=== PATIENT | female | born 1945 | race Caucasian/White ===

== ENCOUNTER → 2016-12-09 | Outpatient (CLI) | payer OTHER ==
--- NOTE | 2016-12-10 09:05 | DX ---
DEXA Bone Densitometry Technique: DEXA scan was performed on [employer] Discovery W Bone Densitometer Indication: Prior vertebral fracture Comparator Study: None Results: Lumbar Spine BMD: 0.839 T-score: -1.9 Total Hip (Right) BMD: 0.829 T-score: 0.9 Femoral Neck (Right) BMD: 0.716 T-score: -1.2 Total Hip (Left) BMD: 0.781 T-score: -1.3 Femoral Neck (Left) BMD: 0.687 T-score: -1.5 CONCLUSION: Osteopenia If there was exclusion of L1 and L2 because of prior vertebral compression fractures, the remaining T score in the lumbar spine is diagnostic of osteoporosis. Recommend x-ray for further evaluation of v ertebral compression fractures ADDITIONAL COMMENTS: By FRA X calculation, the estimated 10 year probability of any major osteoporotic fracture is 19%. Th e estimated 10 year probability of hip fracture is 3.5%. This patient meets the National Osteoporosis Foundation guidelines for pharmacologic treatment based on T score less than -2.5 in the lumbar spine with exclusion of L1 and L2. In addition she meets bravo delines for pharmacologic treatment based on 10 year hip fracture risk greater than 3% Recommend further treatment to prevent fractures and increased bone mineral density. Consider repeating the study in 2 years NOTE: The risk of osteoporotic fractures increases approximately twofold for each 1.0 SD decrease in T-score. The T-score represents the standard deviations from a young normal, same sex, reference po pulation. Low bone density is not the only risk factor for fracture. Clinical factors to consider include fall risk, previous osteoporotic fractures, family history of fractures, smoking, and low body weight. Patients who have an unexpectedly low BMD may need to be evaluated for secondary causes of low bone m ineral density. In comparing the present study to a prior study, lack of a significant increase or decrease in BMD ma y signify efficacy of the patient's present treatment. Bone mineral density measurements performed with densitometers produced by different manufacturers ar e not comparable. For the most reproducible BMD measurement, subsequent exams should be performed on the same densitometer.
== END ==
LOC: BMCIMAGING 14:29
PROVIDERS: ATTEND Internal Medicine Rheumatology
DX: Z13.820 Encounter for screening for osteoporosis (principal); M85.80 Other specified disorders of bone density and structure, unspecified site

== ENCOUNTER → 2016-12-22 | Outpatient (CLI) | payer OTHER | LOC: BMCIMAGING 09:05 | PROVIDERS: ATTEND Internal Medicine Endocrinology, Diabetes & Metabolism | DX: E04.2 Nontoxic multinodular goiter (principal); R22.1 Localized swelling, mass and lump, neck | CPT/HCPCS: 76536-PO ==

== ENCOUNTER → 2017-03-12 | Outpatient (CLI) | payer OTHER | LOC: BMCIMAGING 09:22 | PROVIDERS: ATTEND Internal Medicine Rheumatology | DX: M79.652 Pain in left thigh (principal) ==

== ENCOUNTER → 2017-04-27 | Outpatient (CLI) | payer OTHER | LOC: BMCIMAGING 07:54 | PROVIDERS: ATTEND Internal Medicine | DX: Z12.31 Encounter for screening mammogram for malignant neoplasm of breast (principal); Z80.3 Family history of malignant neoplasm of breast; Z85.72 Personal history of non-Hodgkin lymphomas | CPT/HCPCS: G0202 ==

== ENCOUNTER 2017-11-05 21:16 | Inpatient (IN) | payer OTHER ==
--- NOTE | 2017-11-05 21:40 | CPEKG ---
Heart Rate: 91 RR Interval: 659 P-R Interval: 144 QRSD Interval: 90 QT Interval: 372 QTC Interval: 458 P Moore: 68 QRS Moore: 73 T Wave Moore: 25 EKG Severity - BORDERLINE ECG - EKG Impression: SINUS RHYTHM EKG Impression: PROBABLE LEFT ATRIAL ABNORMALITY Electronically Signed By: J Luis Randle 07-Nov-2017 06:04:43
[2017-11-05 21:49] LABS: PLATELET COUNT 234 10^3/uL (150-400)
[2017-11-05] MEDS ORDERED: LIDOCAINE 2% VISCOUS 15 ML UDCUP PO ONE (22:14)
[2017-11-05] MEDS ORDERED: MAG HYDROX/AL HYDROX/SIMETH 30 ML UDCUP PO ONE (22:14)
[2017-11-05] MEDS ORDERED: ASPIRIN 81 MG CHEWABLE TAB PO ONE (22:15)
--- NOTE | 2017-11-05 22:18 | EDPHY ---
H & P Stated Complaint: c/o palpitations last week, today felt sob/dizzy/sub sternal cp Time Seen by Provider: 11/05/17 22:02 HPI/ROS: Chief Complaint: Chest pain, lightheaded, nausea HPI: A 72-year-old type 2 diabetic who is been having some substernal chest discomfort on off for the last 2 days. She has had some associated nausea and lightheadedness. Today she went for a 4 mi hiking had some increased shortness of breath while hiking and some increasing discomfort in her chest. At worst is a 3/4 out of 10. Is described as a tightness. Two weeks ago she had. Has some irregular heartbeat which has since resolved. Patient also having some pain which is radiating down her left scapula which went away after she took 2 Advil. No leg pain or swelling. No pleuritic chest pain. No cough. No fevers or chills. No vomiting diarrhea or constipation. She did have a stress test 1 year ago was told by her physician she had "age-related vessel changes ". ROS: 10 point Review of Systems is negative except as noted in the HPI. PMH: Type 2 diabetes, osteoporosis, hypertension, rheumatoid arthritis, lymphoma Social History: No smoking, occasional alcohol, no recreational drug use Family History: Father of complications from prostate cancer, mother at 99 years old Physical Exam: Gen: Awake, Alert, No Distress HEENT: Nose: no rhinorrhea Eyes: PERRLA, EOMI Mouth: Moist mucosa Neck: Supple, no JVD Chest: nontender, lungs clear to auscultation Heart: S1, S2 normal, no murmur Abd: Soft, moderate epigastric tenderness reproducing presenting complaint, no guarding, no right upper quadrant tenderness, no lower abdominal tenderness Back: no CVA tenderness, no midline tenderness Ext: no edema, non-tender Skin: no rash Neuro: CN II-XII intact, Sensation grossly intact, Strength 5/5 in bilateral upper and lower extremities - Medical/Surgical History Hx Asthma: No Hx Chronic Respiratory Disease: No Hx Diabetes: Yes Hx Cardiac Disease: Yes Hx Renal Disease: No Hx Cirrhosis: No Hx Alcoholism: No Hx HIV/AIDS: No Hx Splenectomy or Spleen Trauma: No Other PMH: dm 2, osteoporosis, hyperlipidemia, RA, L3- L5 laminectomy, appendectomy, lymphoma - Social History Smoking Status: Never smoked Constitutional: Initial Vital Signs Temperature (C) 36.9 C 11/05/17 21:21 Heart Rate 102 H 11/05/17 21:21 Respiratory Rate 16 11/05/17 21:21 Blood Pressure 116/76 11/05/17 21:21 O2 Sat (%) 98 11/05/17 21:21 O2 Delivery Mode Nasal Cannula O2 (L/minute) 2 Allergies/Adverse Reactions: meperidine HCl [From Demerol] Allergy (Mild, Verified 11/05/17 21:28) Home Medications: Medication Instructions Recorded ESCITALOPRAM OXALATE [Lexapro] 20 mg PO 05/11/11 Hydroxychloroquine Sulfate 400 mg PO 05/11/11 [Plaquenil] Triamterene/Hctz 37.5/25 [Dyazide] 1 each PO DAILY 05/11/11 Aspirin 81mg (*) 11/05/17 Atorvastatin Calcium 11/05/17 Lantus 100 UNITS/ML (*) 11/05/17 Prolia 11/05/17 Medical Decision Making - Diagnostics EKG Interpretation: ECG time 9:39 p.m., sinus rhythm with a rate of 91, normal axis, normal intervals, there is greater than [address] depression in V5 and V6 with very minimal depression in V4. Imaging Results: Imaging Impressions Chest X-Ray 11/05/17 22:13 Impression: No evidence for acute cardiopulmonary abnormality. Imaging: I viewed and interpreted images myself ED Course/Re-evaluation: A 72-year-old with epigastric pain. She is concerning changes in the lateral leads in her ECG. Pain is actually relieved with a GI cocktail. Troponin is negative. Given her diabetes an ECG changes she will need to be admitted for further cardiac evaluation. I have discussed case with Dr. Adkins, hospitalist. She will admit to her service for further evaluation and care. - Data Points Laboratory Results: Laboratory Results 11/05/17 21:40 11/05/17 21:40 11/05/17 11/05/17 11/05/17 21:40 21:40 21:40 WBC 5.95 10^3/uL 10^3/uL (3.80-9.50) RBC 4.32 10^6/uL 10^6/uL (4.18-5.33) Hgb 13.7 g/dL g/dL (12.6-16.3) Hct 39.3 % % (38.0-47.0) MCV 91.0 fL fL (81.5-99.8) MCH 31.7 pg pg (27.9-34.1) MCHC 34.9 g/dL g/dL (32.4-36.7) RDW 13.2 % % (11.5-15.2) Plt Count 234 10^3/uL 10^3/uL (150-400) MPV 8.9 fL fL (8.7-11.7) Neut % (Auto) 91.5 % H % (39.3-74.2) Lymph % (Auto) 3.5 % L % (15.0-45.0) Yates % (Auto) 3.2 % L % (4.5-13.0) Eos % (Auto) 0.8 % % (0.6-7.6) Baso % (Auto) 0.5 % % (0.3-1.7) Nucleat RBC Rel Count 0.0 % % (0.0-0.2) Absolute Neuts (auto) 5.44 10^3/uL 10^3/uL (1.70-6.50) Absolute Lymphs (auto) 0.21 10^3/uL L 10^3/uL (1.00-3.00) Absolute Monos (auto) 0.19 10^3/uL L 10^3/uL (0.30-0.80) Absolute Eos (auto) 0.05 10^3/uL 10^3/uL (0.03-0.40) Absolute Basos (auto) 0.03 10^3/uL 10^3/uL (0.02-0.10) Absolute Nucleated RBC 0.00 10^3/uL 10^3/uL (0-0.01) Immature Gran % 0.5 % % (0.0-1.1) Immature Gran # 0.03 10^3/uL 10^3/uL (0.00-0.10) Turbidity Cancelled Sodium Cancelled 134 mEq/L mEq/L (134-144) Potassium Cancelled 3.5 mEq/L mEq/L (3.5-5.2) Chloride Cancelled 99 mEq/L mEq/L (97-110) Carbon Dioxide Cancelled 21 mEq/l L mEq/l (22-31) Anion Gap Cancelled 14 mEq/L mEq/L (8-16) BUN Cancelled 36 mg/dL H mg/dL (7-23) Creatinine Cancelled 0.8 mg/dL mg/dL (0.6-1.0) Estimated GFR Cancelled > 60 Glucose Cancelled 215 mg/dL H mg/dL (70-100) Calcium Cancelled 9.5 mg/dL mg/dL (8.5-10.4) Total Bilirubin Cancelled Icterus Index Cancelled AST Cancelled ALT Cancelled Alkaline Phosphatase Cancelled Troponin I Cancelled < 0.012 ng/mL ng/mL (0.000-0.034) Total Protein Cancelled Albumin Cancelled Lipase 152 IU/L IU/L (23-300) Specimen Hemolysis Cancelled Medications Given: Discontinued Medications Al Hydroxide/Mg Hydroxide (Maalox Susp) 30 ml PO ONCE ONE Stop: 11/05/17 22:15 Last Admin: 11/05/17 22:37 Dose: 30 ml Aspirin (Aspirin) 324 mg PO EDNOW ONE Stop: 11/05/17 22:16 Last Admin: 11/05/17 22:37 Dose: 324 mg Lidocaine (Lidocaine 2% Viscous) 15 ml PO ONCE ONE Stop: 11/05/17 22:15 Last Admin: 11/05/17 22:37 Dose: 15 ml Departure - Departure Disposition: [facility] Inpatient Acute Clinical Impression: Chest pain Condition: Fair Referrals: Mikey Sena MD [Primary Care Provider] - As per Instructions
[2017-11-06] MEDS ORDERED: HYDROCODONE/APAP 5/325 TAB PO PRN (00:52)
[2017-11-06] MEDS ORDERED: ONDANSETRON 4 MG/2 ML VIAL IVP PRN (00:52)
[2017-11-06] MEDS ORDERED: LORazepam 2 MG/ML INJ IVP PRN (00:52)
[2017-11-06] MEDS ORDERED: D50W 25 GM/50 ML VIAL IVP PRN (00:56)
[2017-11-06] MEDS ORDERED: MBX SOLN 30 ML BOTTLE PO PRN (00:58)
[2017-11-06] MEDS ORDERED: NITROGLYCERIN 0.4 MG BTL SL PRN (00:59)
[2017-11-06] MEDS ORDERED: INSULIN GLARGINE 100 UNITS/ML SYRINGE SC SCH (01:15)
[2017-11-06] MEDS: NS 1,000 ML IV SCH ×4 (02:13→17:20)
[2017-11-06] MEDS: PANTOPRAZOLE SODIUM 40 MG VIAL IVP SCH ×2 (02:23→11:34)
--- NOTE | 2017-11-06 03:25 | GHP ---
[f rep st] HISTORY AND PHYSICAL DATE OF ADMISSION: 11/05/2017 SOURCE: Patient provides history, appears quite reliable. EMR reviewed. Case discussed with ED provider. CHIEF COMPLAINT: Chest tightness and epigastric pain. HISTORY OF PRESENT ILLNESS: This is a very pleasant 72-year-old female with past medical history significant for diabetes type 2, benign essential hypertension, hyperlipidemia, depression, rheumatoid arthritis, and history of MALT lymphoma in remission, who presents to the emergency department today with complaints of epigastric abdominal pain and chest tightness. Patient reports that she has been feeling increasingly fatigued over the past several months and more so today. She also noted some lightheadedness with nausea and chest tightness during a several hour hike locally. Patient reports that she felt like she could not get enough air. She developed some diaphoresis with her lightheadedness, which she attributes to orthostatic changes. Patient did not have any nausea. No diarrhea. No melena or hematochezia. Patient describes her chest pain as a tightness and aching. She also developed some left subclavicular, subscapular pain which resolved after taking several Advil. Given her multiple symptoms, patient presented to the emergency department for further evaluation. Patient reports that she had a stress test within the last year. Dobutamine with echo and a treadmill. I do not have access to these records. Patient reports that it was completed at [facility]. She was advised that she had some "age-related vessel changes". Patient also reports that she has a history of a murmur. She believes it could be due to mitral regurgitation, but she is not 100% clear. She denies any orthopnea, no PND and no lower extremity edema. In the emergency department, patient underwent cardiac evaluation with EKG showing some ST depressions in the lateral leads without any available EKGs for comparison. Additionally, troponin was negative. Patient was given a GI cocktail which she reports helped with her epigastric pain, but she continues to complain of some substernal tightness. She denies any reflux type symptoms. She also notes that she had an EGD for followup of her MALT lymphoma as well as H pylori testing in April of this year, which were all negative. Patient did note that she was drinking coffee and her some of her symptoms appeared to worsen, so she stopped drinking that. She did not take any ooqo-xrw-vritabz medications to see if this would help with her symptoms. REVIEW OF SYSTEMS: Negative for fevers and sweats. Patient did report some chills earlier all day today, which have resolved since arrival to the emergency department. She has noted progressive fatigue. SKIN: The patient denies any rash or sores. EYES: does wear readers. No acute changes in vision. ENT: No rhinorrhea or sore throat. CV: See HPI. RESPIRATORY: Patient with some shortness of air. No cough. GI: With nausea and epigastric pain as per HPI. No melena or hematochezia. : No dysuria or hematuria. MUSCULOSKELETAL: Patient denies. The reported left subclavicular, subscapular pain, now resolved. NEURO: Patient reports some mild headache. No numbness or tingling. No focal weakness. PSYCHIATRIC: Patient reports history of remote situational related mood disturbance but no chronic depression, and currently having some increased anxiety with her current symptoms. Remainder ROS negative except as noted above. ALLERGIES: To Demerol. HOME MEDICATIONS: Janumet, triamterene/HCTZ 37.5/25, Prolia, Lantus 10 units at h.s., Plaquenil 400 mg, Lexapro 20 mg, atorvastatin, and aspirin 81 mg p.o. daily. PAST MEDICAL HISTORY: Significant for diabetes type 2, hypertension, hyperlipidemia, depression, osteoporosis with history of several vertebral fractures that required 9 months of brace support, rheumatoid arthritis, MALT lymphoma status post radiation therapy in 2010, and a murmur. PAST SURGICAL HISTORY: Significant for diskectomy, laminectomy, and lumbar spine. EGD in April of 2017 with H pylori testing that was negative. Bilateral cataract surgery. FAMILY HISTORY: Father with history of prostate cancer, age 95. Mother age 99 of old age. Three adult sons who are all healthy. 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 She does not smoke or utilize any illicit drug use or marijuana. She did previously drink 1-2 glasses of wine nightly, which she has cut back. CODE STATUS: Full. Patient desires her to act as proxy if needed. PHYSICAL EXAM: VITAL SIGNS: Blood pressure upon arrival to the emergency department 116/76, heart rate 102, respiratory rate 16, O2 sat 98% on room air with a temperature 36.9. Patient did have a decline in blood pressures low as 96/75 with a normalized heart rate in the 80s. Current vitals available blood pressure 111/70, heart rate is 83, respiratory rate 16, O2 saturation 97% on room air. Afebrile. GENERAL: No acute distress. Very pleasant adult female who appears slightly older than stated age. Pleasant and cooperative. HEAD: Normocephalic, atraumatic. EYES: Extraocular muscles are intact. Pupils equal , round, and reactive to light bilaterally and symmetric. Lens reflex appreciated bilaterally. ENT: Mucous membranes appear dry. Lips are dry and cracked slightly. No nasal discharge. NECK: Supple. Trachea midline. CV: Regular rate and rhythm with a 2/6 systolic murmur in the left sternal border. No chest wall tenderness to palpation. RESPIRATORY: Unlabored breathing. LUNGS: Clear to auscultation bilaterally. No wheezes, rales, or rhonchi appreciated. ABDOMEN: Positive bowel sounds. Soft. Minimal tenderness to palpation in the epigastric region. No rebound or guarding appreciated. : No Pritchett catheter in place. No suprapubic tenderness to palpation. EXTREMITIES : No cyanosis, clubbing, or edema appreciated. MUSCULOSKELETAL: Strength is 5 /5 in upper and lower extremities. Patient is able to sit up independently. NEURO: Grossly nonfocal. No facial drooping. Patient moves all extremities as above. PSYCH: Patient is slightly anxious, but pleasant, cooperative and thought process, content and questions are all appropriate. Patient is oriented x4. LABORATORY STUDIES: WBC is 5.95, H and H 13.7, 39.3, MCV of 91.0, platelet count 234, neutrophil percent 91.5. No bands. Sodium is 134, potassium 3.5, chloride 99, CO2 21, BUN is 36, creatinine 0.8, GFR of greater than 60, glucose is 215, calcium 9.5. Troponin is negative. Lipase 152. Chest x-ray image report reviewed myself is negative for any acute findings. Patient does have noted multilevel vertebral deformities. These are noted at level of T11, L1 and L2. EKG reviewed myself shows normal sinus rhythm in the 90s, ST depressions in the lateral leads with less than 1 mm depression in lead III. No acute ST elevations. No comparison EKGs. QTc is 458. ASSESSMENT AND PLAN: Pleasant 72-year-old female who presents with complaints of substernal epigastric pain. 1. Chest pain. Differential diagnosis including likely a GI etiology of esophagitis or gastritis. Patient's symptoms did appear to improve after GI cocktail. Will plan to continue this p.r.n. Also add on a PPI for further symptom control. Patient does plan to avoid her triggers including caffeine and possibly wine at h.s. The patient's EKG, however, does have some noted ST depressions in the lateral leads. There are no comparison EKGs available for review that I can access at this time. Patient did report a stress test that was completed approximately a year ago, treadmill and dobutamine echo that were reported to be nonischemic per the patient. Will try to see if we can access these records in the morning. Plan to trend cardiac enzymes and consider further cardiac testing given patient's increased risk factors with a heart score of 4. Patient will also have nitroglycerin available. She has received full dose aspirin in the emergency department. Additionally, chest pain could be related to some hypotension. Will hold patient's diuretic therapy. Continue with IV fluids. Repeat EKG later this morning and consider stress testing in the morning after rule out with cardiac enzymes as above. 2. Epigastric pain. Lipase is negative. Patient does have history of MALT tumor, which was evaluated and noted to be in remission with recent EGD in April. Possibly gastritis or esophagitis. Patient did improve with a GI cocktail. Will add on a PPI as above. 3. Hypotension, likely dehydration. Patient clinically does appear dry and she is on a diuretic. Will proceed with IV fluid hydration overnight and obtain some orthostatic blood pressures. 4. Murmur with history of reported mitral regurg. Again will try to obtain records. If not, consider further evaluation at this time. Patient without any clinical history of congestive heart failure decompensation. 5. Chronic medical problems: Diabetes type 2, reported controlled with Lantus and Janumet. Will place patient on insulin sliding scale and she will be given her 10 units of h.s. Lantus this evening. Resume Janumet after discharge. 6. Benign essential hypertension, holding diuretic at this time. Blood pressures are low-normal. IV fluid hydration as per above. 7. History of rheumatoid arthritis. Resume patient's Plaquenil. 8. Depression. Continue patient's Lexapro once med reconciliation can be completed by pharmacy as there are some missing medications. 9. Hyperlipidemia. Check a lipid panel in the morning and an A1c. Continue statin here if patient should stay an additional day. 10. History of MALT lymphoma, in remission. 11. History of vertebral fracture. Patient without complaints of acute pain. Noted history of vertebral fractures. Supportive care. 12. Fluid, electrolyte, nutrition: Normal saline IV fluid as above while patient is n.p.o. for possible procedure with stress testing. Electrolytes will be monitored and replaced if needed. 13. Prophylaxis: SCDs. Holding anticoagulation pending rule out. 14. Consider Lovenox if patient should need to stay an additional day. 15. Code status is full. to act as proxy if needed. DISPOSITION: Patient has been admitted to observation on PCU floor for close cardiac monitoring while awaiting further evaluation of complaints of chest pain. /[id number]/MODL MTDD
[2017-11-06] MEDS ORDERED: NS 1,000 ML IV ONE (03:38)
[2017-11-06 08:01] LABS: PLATELET COUNT 209 10^3/uL (150-400)
[2017-11-06] MEDS: ACETAMINOPHEN 325 MG TAB PO PRN (08:08)
--- NOTE | 2017-11-06 09:12 | CPEKG ---
Heart Rate: 77 RR Interval: 779 P-R Interval: 164 QRSD Interval: 96 QT Interval: 416 QTC Interval: 471 P Gueydan: 66 QRS Gueydan: 58 T Wave Gueydan: 35 EKG Severity - BORDERLINE ECG - EKG Impression: SINUS RHYTHM EKG Impression: PROBABLE LEFT ATRIAL ABNORMALITY EKG Impression: CONSIDER ANTERIOR INFARCT Electronically Signed By: Chuck Montes 07-Nov-2017 07:38:37
--- NOTE | 2017-11-06 09:29 | ASMTCMCOM ---
CM Note CM Note Notes: 11/06/2017 Case Management Note Met w/pt. NESBITT signed. There are not case management d/c needs identified d/t pt age, marital status and employment status. 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 Norman can be reached at [phone]. There are no PT or OT evals ordered at this time. Case Management d/c poc: Home independent with follow up as directed. Case Mangement available if needs change. Date Signed: 11/06/2017 09:29 AM Electronically Signed By:Aspen Ma RN
[2017-11-06] MEDS: INSULIN LISPRO 100 UNIT/ML SC SCH ×4 (11:31→18:27)
--- NOTE | 2017-11-06 15:36 | HOSPPROG ---
Hospitalist Progress Note Assessment/Plan: 72 yo F w cp cp: w ekg changes c/f angina h/o abnl stress in past repeat ion AM hypotension: no ekg during repeat trop SUSPECT vv due to epigastric pain afebrile, not tachycardic and euvolemic dm: sugars in slightly high overnight a1c pending epigastric pain: responded to GI cocktail. this does not rule out anginal sx dispo: change to inpatienr Subjective: ekg w lateral ST depressions last inder; resolved this AM (interp by me). cxr w no infiltrtate (interp by me) Objective: Vital Signs Temp Pulse Resp BP Pulse Ox 36.8 C 73 16 100/62 98 11/06/17 11:15 11/06/17 11:15 11/06/17 11:15 11/06/17 15:00 11/06/17 11:15 Laboratory Results 11/06/17 07:47 11/06/17 07:47 11/05/17 11/06/17 11/07/17 05:59 05:59 05:59 Intake Total 1850 Balance 1850 - Physical Exam Constitutional: no apparent distress, appears nourished Eyes: PERRL, anicteric sclera Ears, Nose, Mouth, Throat: moist mucous membranes, hearing normal Cardiovascular: regular rate and rhythym, no murmur, rub, or gallop Respiratory: no respiratory distress, no rales or rhonchi Gastrointestinal: normoactive bowel sounds, soft, non-tender abdomen Genitourinary: no bladder fullness, No morrison in urethra Skin: warm, normal color Musculoskeletal: full muscle strength, no muscle tenderness Neurologic: AAOx3 Psychiatric: interacting appropriately ICD10 Worksheet Patient Problems: Problems Problem Status Onset Chest pain Acute
--- NOTE | 2017-11-06 16:10 | PDMN ---
Medical Necessity Medical necessity: C/M review: est. > 2 MN LOS for eval and TX of acute chest pain with EKG changes consistent with angina, hypotension. epigastric pain requiring planned stress treadmill and myocardial perfusion scan, ongoing cardiac monitoring, IV fluids, pulse oximetry, comorbid abnormal stress in the past, diabetes mellitus per 11/06/2017 Hospitalist progress note.
[2017-11-06] MEDS: metFORMIN HCL 500 MG TAB PO SCH (16:27)
[2017-11-06] MEDS: ESCITALOPRAM OXALATE 10 MG TAB PO SCH (20:52)
[2017-11-06] MEDS: CHOLECALCIFEROL VIT D3 2,000 UNITS TAB/CAP PO SCH (20:52)
[2017-11-06] MEDS: ATORVASTATIN CALCIUM 20 MG TAB PO SCH (20:52)
[2017-11-06] MEDS: ASPIRIN 81 MG CHEWABLE TAB PO SCH (20:52)
[2017-11-06] MEDS: INSULIN GLARGINE 100 UNITS/ML SYRINGE SC SCH (21:23)
[2017-11-06] MEDS: traZODone 50 MG TAB PO SCH (21:24)
[2017-11-06] MEDS ORDERED: PROTOCOL POTASSIUM 1 DOSE MISC PRN (22:53)
[2017-11-06] MEDS ORDERED: PROTOCOL MAGNESIUM 1 DOSE IV PRN (22:53)
[2017-11-06] MEDS ORDERED: PROTOCOL K PHOSPHATE 1 DOSE IV PRN (22:53)
[2017-11-07] MEDS ORDERED: POTASSIUM CL 10 MEQ TAB PO ONE ×2 (07:22→11:30)
--- NOTE | 2017-11-07 10:15 | CPR ---
[f rep st] NONINVASIVE CARDIAC PROCEDURE REPORT PROCEDURE: Nuclear stress test. After giving informed consent, we proceeded with a nuclear stress test. The patient performed for 6 minutes on a standard Kiko protocol and then went for another 10 seconds on stage III of the standar d Kiko protocol. She felt like that was too fast for her and so we stopped the test. She reached 9 5% of maximum predicted heart rate. She had no chest pain. She stopped for shortness of breath. Chaparro bang EKG did not change with exercise. CONCLUSIONS: 1. Moderate exercise tolerance. 2. No cardiovascular symptoms with exercise. 3. Nuclear images pending. 4. No EKG or clinical evidence of ischemia at maximum workload. /[id number]/MODL
[2017-11-07] MEDS: INSULIN LISPRO 100 UNIT/ML SC SCH ×4 (11:07→17:29)
[2017-11-07] MEDS: PANTOPRAZOLE SODIUM 40 MG VIAL IVP SCH (11:19)
[2017-11-07] MEDS: TRIAMTERENE/HCTZ 37.5/25 1 EACH CAP PO SCH (11:19)
[2017-11-07] MEDS: metFORMIN HCL 500 MG TAB PO SCH ×2 (11:19→17:37)
[2017-11-07] MEDS: HYDROXYCHLOROQUINE SULFATE 200 MG TAB PO SCH (11:24)
[2017-11-07] MEDS ORDERED: K PHOS 10 MMOL in D5W 250 ML IV ONE (12:00)
--- NOTE | 2017-11-07 14:42 | HOSPPROG ---
Hospitalist Progress Note Assessment/Plan: 72 yo F w cp cp: w ekg changes c/f angina h/o abnl stress in past ekg portion of stress unremarkable but stress images abnl rest images in AM hypotension: no ekg during repeat trop SUSPECT vv due to epigastric pain afebrile, not tachycardic and euvolemic resolved dm: sugars in slightly high overnight a1c pending epigastric pain: responded to GI cocktail. this does not rule out anginal sx dispo: change to inpatient Subjective: case d/w dr smith. tele: no events (interp by me) Objective: Vital Signs Temp Pulse Resp BP Pulse Ox 36.7 C 69 15 102/65 98 11/07/17 12:00 11/07/17 12:00 11/07/17 12:00 11/07/17 12:00 11/07/17 12:00 Laboratory Results 11/07/17 03:30 11/07/17 03:30 11/06/17 11/07/17 11/08/17 05:59 05:59 05:59 Intake Total 4042 Balance 4042 - Physical Exam Constitutional: no apparent distress, appears nourished Eyes: PERRL, anicteric sclera Ears, Nose, Mouth, Throat: moist mucous membranes, hearing normal Cardiovascular: regular rate and rhythym, no murmur, rub, or gallop, systolic murmur Respiratory: no respiratory distress, no rales or rhonchi Gastrointestinal: normoactive bowel sounds, soft, non-tender abdomen Genitourinary: no bladder fullness, No morrison in urethra Skin: warm, normal color Musculoskeletal: full muscle strength, no muscle tenderness Neurologic: AAOx3 Psychiatric: interacting appropriately ICD10 Worksheet Patient Problems: Problems Problem Status Onset Chest pain Acute
[2017-11-07] MEDS: ACETAMINOPHEN 325 MG TAB PO PRN (21:12)
[2017-11-07] MEDS: INSULIN GLARGINE 100 UNITS/ML SYRINGE SC SCH (22:54)
[2017-11-07] MEDS: traZODone 50 MG TAB PO SCH (22:55)
[2017-11-07] MEDS: ATORVASTATIN CALCIUM 20 MG TAB PO SCH (22:55)
[2017-11-07] MEDS: ESCITALOPRAM OXALATE 10 MG TAB PO SCH (22:55)
[2017-11-07] MEDS: ASPIRIN 81 MG CHEWABLE TAB PO SCH (22:55)
[2017-11-07] MEDS: CHOLECALCIFEROL VIT D3 2,000 UNITS TAB/CAP PO SCH (22:55)
[2017-11-08] MEDS ORDERED: POTASSIUM CL 10 MEQ TAB PO ONE (07:55)
[2017-11-08] MEDS: HYDROXYCHLOROQUINE SULFATE 200 MG TAB PO SCH (11:55)
[2017-11-08] MEDS: TRIAMTERENE/HCTZ 37.5/25 1 EACH CAP PO SCH (11:55)
[2017-11-08] MEDS: metFORMIN HCL 500 MG TAB PO SCH ×2 (11:55→17:03)
[2017-11-08] MEDS: INSULIN LISPRO 100 UNIT/ML SC SCH ×2 (12:02→16:51)
--- NOTE | 2017-11-08 13:18 | HOSPPROG ---
Hospitalist Progress Note Assessment/Plan: 72 yo F w cp cp: w ekg changes c/f angina stress w inferolateral infarct vs artifact CT coronary angiography now MR: may be responsible for MARES outpt echo hypotension: no ekg during repeat trop SUSPECT vv due to epigastric pain afebrile, not tachycardic and euvolemic resolved dm: sugars in slightly high overnight a1c pending epigastric pain: responded to GI cocktail. this does not rule out anginal sx dispo: change to inpatient Subjective: case discussed at length w Dr Velasco as well as Dr Medina. rest images demonstrate inferolateral infarct vs artifact Objective: Vital Signs Temp Pulse Resp BP Pulse Ox 36.9 C 72 18 114/72 94 11/08/17 11:14 11/08/17 11:14 11/08/17 11:14 11/08/17 11:14 11/08/17 11:14 Laboratory Results 11/07/17 03:30 11/08/17 03:27 11/07/17 11/08/17 11/09/17 05:59 05:59 05:59 Intake Total 4042 200 Balance 4042 200 - Physical Exam Constitutional: no apparent distress, appears nourished Eyes: PERRL, anicteric sclera Ears, Nose, Mouth, Throat: moist mucous membranes, hearing normal Cardiovascular: regular rate and rhythym, systolic murmur Respiratory: no respiratory distress, no rales or rhonchi Gastrointestinal: normoactive bowel sounds, soft, non-tender abdomen Genitourinary: no bladder fullness, No morrison in urethra Skin: warm, normal color Musculoskeletal: full muscle strength, no muscle tenderness Neurologic: AAOx3 Psychiatric: interacting appropriately ICD10 Worksheet Patient Problems: Problems Problem Status Onset Chest pain Acute
[2017-11-08] MEDS ORDERED: METOPROLOL TARTRATE 25 MG TAB PO ONE (13:27)
[2017-11-08] MEDS ORDERED: IOPAMIDOL (ISOVUE 370) 100 ML BTL IV ONE (15:09)
[2017-11-08] MEDS ORDERED: NITROGLYCERIN 0.4 MG BTL SL ONE (15:24)
--- NOTE | 2017-11-08 15:24 | GCON ---
[f rep st] CONSULTATION CARDIOLOGY CONSULTATION DATE OF CONSULTATION: 11/08/2017 IDENTIFYING DATA: Primary care is at the [facility]. CHIEF COMPLAINT: Chest pain, shortness of breath. HISTORY OF PRESENT ILLNESS: We were asked by Dr. Childs to visit with the patient. The patient is a pleasant 72-year-old female. She was told that she had mitral valve regurgitation a few years ago b ased on echocardiogram. She has diabetes, hypertension, dyslipidemia, and rheumatoid arthritis. She was admitted on the with chest tightness and epigastric pain that has been waxing and weaning. She also has intermittent dyspnea. She feels that she is not herself. She is usually very active a nd just feels anxious that there is something going on with her heart. Since admission, she has had serial negative troponins. Her initial EKG did show some subtle lateral ST depression, but this has improved. She underwent myocardial perfusion imaging today. I have rev iewed these images. These do show an inferolateral fixed defect, perhaps slightly worse on stress im ages, suggestive of either old infarction in this territory versus soft tissue attenuation. Ejection fraction is 69% with normal wall motion. Because of her ongoing symptoms and equivocal nuclear stre ss test, I am asked to consult. ALLERGIES: No known drug allergies. PAST MEDICAL HISTORY: 1. Hypertension. 2. Dyslipidemia. 3. Diabetes. 4. Depression. 5. MALT lymphoma. 6. Rheumatoid arthritis. 7. Osteoporosis. 8. Mitral regurgitation. PAST SURGICAL HISTORY: Diskectomy, laminectomy, EGD, bilateral cataracts. MEDICATIONS: Outpatient medications: Aspirin, atorvastatin, vitamin D3, Prolia, Lexapro, Plaquenil, insulin, metformin with sitagliptin, triamterene HCTZ. SOCIAL HISTORY: The patient is . 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 She drinks alcohol in moderation. Does not smoke cigarettes. She is and her is at the bedside. FAMILY HISTORY: Negative for premature coronary disease. PHYSICAL EXAMINATION: VITAL SIGNS: Blood pressure 114/72, heart rate is 72, oxygen saturation 94% o n room air, she is afebrile. GENERAL: A well-appearing, older female in no acute distress. CARDIOV ASCULAR: JVP is less than 10. Regular rate and rhythm with a 2/6 holosystolic murmur at the apex. No gallop. LUNGS: Clear to auscultation bilaterally. EXTREMITIES: No lower extremity edema. NEUR OLOGIC: Alert and oriented x3 without gross focal neurologic deficits. LABORATORY DATA: White count 3.46, hematocrit 33, and platelets are 175. Sodium 141, potassium 4.2, creatinine 0.7. Hemoglobin A1c 8.7. Troponin has been negative x4. TSH normal. LDL cholesterol 3 9. EKG reviewed by me as detailed above. Chest x-ray: No evidence of acute cardiopulmonary abnormality. Nuclear stress test notable for mediocre exercise tolerance at 6 minutes. No chest pain. No ischemi c ST changes. Inferolateral fixed, but partially reversible, defect as detailed above. ASSESSMENT AND PLAN: A 72-year-old female with multiple cardiac risk factors, including hypertension , rheumatoid arthritis, diabetes, dyslipidemia. She presents with waxing and waning chest discomfort that has some typical and some atypical features of angina. She also has some exertional dyspnea. On exam, she has a murmur consistent with a murmur consistent with mitral regurgitation. Her stress test is equivocal. 1. Equivocal stress test and chest pain: I recommend that she undergo CT coronary angiography for f urther evaluation. If this is normal, she may be discharged home for close outpatient followup and o ngoing risk factor modification. If abnormal, she will require coronary angiography. 2. Murmur: This is consistent with mitral regurgitation. It is likely that she has progressive valerie ral regurgitation, which may, in part, explain some of her symptoms. As an outpatient, she can have an echocardiogram. 3. Hypertension: Currently well controlled. 4. Diabetes: Hemoglobin A1c was 8.7. She will require intensified control as an outpatient. Thank you for us participate in your patient's care. We will follow with you. /[id number]/MODL
[2017-11-08 16:10] VITALS: BP 106/62; PULSE 64; RESP 14; TEMP 98.5; O2SAT 95
--- NOTE | 2017-11-08 17:19 | GDS ---
[f rep st] DISCHARGE SUMMARY DISCHARGE DIAGNOSES: 1. Chest pain with concern for cardiac etiology. 2. Mitral regurgitation. 3. Diabetes. 4. Coronary disease by CT angiogram. 5. Possible inferior lateral infarct on prior nuclear stress test. 6. Diabetes. 7. Hypertension. HISTORY OF PRESENT ILLNESS: Please see admission history and physical by Dr. Yesica Adkins. The randolph ent presented with chest pain and chest pressure. She has some lateral ST depressions on EKG. She u nderwent a stress test, which showed inferolateral infarct versus artifact. She had ongoing symptoms . She had a CT coronary angiogram that preliminarily showed a mid LAD lesion, but otherwise was fair ly unremarkable. The patient had negative troponins. No events on telemetry and did not have any ev idence of heart failure. She was seen by Dr. Velasco in Cardiology who will see her in followup and claudette raza an outpatient echocardiogram for evaluation of her mitral regurgitation. Greater than 30 minutes were spent on this discharge. /[id number]/MODL
[2017-12-07] MEDS ORDERED: Denosumab [Prolia] 60 MG SC SCH (09:00)
== END 2017-11-08 17:35 | disposition home or self-care (01) | DRG 313 ==
LOC: F2W 11-06 00:33 → OBSVTOIN 11-06 16:01
PROVIDERS: ADMIT Family Medicine; ATTEND Family Medicine
DX: R07.9 Chest pain, unspecified (principal); R94.31 Abnormal electrocardiogram [ECG] [EKG]; I34.0 Nonrheumatic mitral (valve) insufficiency; E11.9 Type 2 diabetes mellitus without complications; I10 Essential (primary) hypertension; M06.9 Rheumatoid arthritis, unspecified; E78.5 Hyperlipidemia, unspecified; I25.10 Atherosclerotic heart disease of native coronary artery without angina pectoris; F32.9 Major depressive disorder, single episode, unspecified; C88.4 Extranodal marginal zone B-cell lymphoma of mucosa-associated lymphoid tissue [MALT-lymphoma]
CPT/HCPCS: A9500; J1815; Q9967

== ENCOUNTER → 2017-11-12 | Outpatient (CLI) | payer OTHER | LOC: BHCLAF 09:15 | PROVIDERS: ATTEND Internal Medicine Cardiovascular Disease | DX: R07.9 Chest pain, unspecified (principal); R01.1 Cardiac murmur, unspecified | CPT/HCPCS: 93306-PO ==

== ENCOUNTER → 2017-12-16 | Outpatient (CLI) | payer OTHER | LOC: BMCIMAGING 13:43 | PROVIDERS: ATTEND Internal Medicine Endocrinology, Diabetes & Metabolism | DX: Z13.820 Encounter for screening for osteoporosis (principal); M85.89 Other specified disorders of bone density and structure, multiple sites ==

== ENCOUNTER → 2017-12-24 | Outpatient (CLI) | payer OTHER | LOC: FIMAGING 09:57 | PROVIDERS: ATTEND Internal Medicine Gastroenterology | DX: N28.1 Cyst of kidney, acquired (principal) ==

== ENCOUNTER → 2017-12-31 | Outpatient (CLI) | payer OTHER | LOC: FIMAGING 12:53 | PROVIDERS: ATTEND Internal Medicine Endocrinology, Diabetes & Metabolism | DX: E04.2 Nontoxic multinodular goiter (principal) ==

== ENCOUNTER 2018-05-16 08:37 | Day surgery (SDC) | payer OTHER ==
[2018-05-16] MEDS ORDERED: FAMOTIDINE 20 MG TAB PO ONE (08:42)
[2018-05-16] MEDS ORDERED: NS 1,000 ML IV ONE (08:42)
[2018-05-16] MEDS ORDERED: DIAZEPAM 5 MG TAB PO ONE (08:42)
[2018-05-16] MEDS ORDERED: ASPIRIN EC 325 MG TAB PO ONE ×2 (08:42→09:28)
[2018-05-16] MEDS ORDERED: diphenhydrAMINE 25 MG CAP PO ONE ×2 (08:42→09:27)
--- NOTE | 2018-05-16 09:08 | CPEKG ---
Heart Rate: 61 RR Interval: 984 P-R Interval: 152 QRSD Interval: 92 QT Interval: 436 QTC Interval: 440 P Shelton: 50 QRS Shelton: 62 T Wave Shelton: 45 EKG Severity - OTHERWISE NORMAL ECG - EKG Impression: SINUS RHYTHM Electronically Signed By: Nathaniel Gonzalez 19-May-2018 21:53:31
[2018-05-16] MEDS ORDERED: FAMOTIDINE 20 MG TAB ONE (09:27)
[2018-05-16] MEDS ORDERED: DIAZEPAM 5 MG TAB ONE (09:28)
[2018-05-16 09:41] LABS: PLATELET COUNT 275 10^3/uL (150-400)
[2018-05-16 09:57] LABS: INR 0.95 (0.83-1.16); PROTIME(PATIENT) 12.9 SEC (12.0-15.0)
--- NOTE | 2018-05-16 10:48 | PDHPUP ---
History & Physical Update H&P update statement: This history and physical update is based on an assessment of the patient which was completed after admission or registration (within 24 hours), but prior to the surgery/procedure. H&P update: H&P reviewed & patient examined, changes noted (Decision made to proceed with coronary angiogram because of ongoing symtoms concerning for angina despite max medical management)
--- NOTE | 2018-05-16 10:49 | PDPROPOC ---
Sedation Plan of Care Sedation Plan of Care: vital signs stable, mental status noted, patient educated of risks, benefits, alternatives, patient can tolerate sedation ASA Classification: ASA 2 Planned drugs: fentanyl, midazolam Mallampati Score: Class 2 Mallampati Reference Image: Patient passed 3-3-2 rule?: Yes
[2018-05-16] MEDS ORDERED: MIDAZOLAM 2 MG/2 ML VIAL ONE ×2 (10:51→11:29)
[2018-05-16] MEDS ORDERED: LIDOCAINE 1% 300 MG/30 ML SDV ONE (10:51)
[2018-05-16] MEDS ORDERED: fentaNYL 100 MCG/2 ML INJ ONE ×2 (10:51→11:29)
[2018-05-16] MEDS ORDERED: IOPAMIDOL (ISOVUE-370) 150 ML BTL IV ONE (10:51)
[2018-05-16] MEDS ORDERED: OXYCODONE/APAP 5/325 TAB PO PRN (12:16)
[2018-05-16] MEDS ORDERED: ATROPINE SULFATE 1 MG/10 ML SYR IVP PRN (12:16)
[2018-05-16] MEDS ORDERED: HYDROCODONE/APAP 5/325 TAB PO PRN (12:16)
[2018-05-16] MEDS ORDERED: ONDANSETRON 4 MG/2 ML VIAL IVP PRN (12:16)
[2018-05-16] MEDS ORDERED: NITROGLYCERIN 0.4 MG BTL SL PRN (12:16)
--- NOTE | 2018-05-16 12:16 | PDDXCAT ---
Diagnostic Cath Note - . Date: 05/16/18 [employer] Operator: Krista Indication: Class I/II angina, intolerance to med therapy or failure to respond - Procedure Access: right groin Procedure: left heart catheterization, coronary angiography, left ventriculogram - Materials Left Heart Cath size: 6F Left Heart Cath materials: standard multipack (JL4, JR4, pigtail) - Findings-Left Heart Catheterization LM: normal and bifurcates into LAD and LCx LAD: one principal diagonal. 30% mid vessel stenosis vs mild muscle bridge. LCX: 3 moderate sized OM vessels without significant CAD. Codominant RCA: codominant. no significant CAD EDP: 13 LVEF: 60 Wall motion: normal - Findings-Right Heart Catheterization AO: Assessment: 30% mid LAD stenosis vs mild muscle bridge. Unlikely cause of CP. Normal LVEF. No . Continue risk factor modification Patient Problems: Problems Problem Status Onset Chest pain Acute
== END 2018-05-16 15:23 | disposition home or self-care (01) ==
LOC: FCATH 08:37
PROVIDERS: ATTEND Internal Medicine Cardiovascular Disease
PROC: 4A023N7 Measurement of Cardiac Sampling and Pressure, Left Heart, Percutaneous Approach (ICD-10-PCS; principal; 2018-05-16)
PROC: B2111ZZ Fluoroscopy of Multiple Coronary Arteries using Low Osmolar Contrast (ICD-10-PCS; principal; 2018-05-16)
PROC: B2151ZZ Fluoroscopy of Left Heart using Low Osmolar Contrast (ICD-10-PCS; principal; 2018-05-16)
DX: I25.110 Atherosclerotic heart disease of native coronary artery with unstable angina pectoris (principal); I10 Essential (primary) hypertension; E78.5 Hyperlipidemia, unspecified
CPT/HCPCS: C1760; J1644; J2250; J3010; Q9967

== ENCOUNTER → 2018-06-24 | Outpatient (CLI) | payer OTHER | LOC: FIMAGING 10:49 | PROVIDERS: ATTEND Obstetrics & Gynecology | DX: Z12.31 Encounter for screening mammogram for malignant neoplasm of breast (principal); Z80.3 Family history of malignant neoplasm of breast ==

== ENCOUNTER → 2018-07-06 | Outpatient (CLI) | payer OTHER | LOC: FIMAGING 14:02 | PROVIDERS: ATTEND Obstetrics & Gynecology | DX: R92.8 Other abnormal and inconclusive findings on diagnostic imaging of breast (principal) ==

== ENCOUNTER 2018-10-26 20:25 | Day surgery (SDC) | payer OTHER ==
[2018-10-26] MEDS ORDERED: BUPIVACAINE/EPI 0.5% 30 ML SDV ONE (20:39)
[2018-10-26] MEDS ORDERED: BACITRACIN 50,000 UNITS/10 ML SYR IRR ONE (20:40)
[2018-10-26] MEDS ORDERED: POLYMYXIN B SULFATE 500,000 UNIT/10 ML SYR IRR ONE (20:40)
[2018-10-26] MEDS ORDERED: ceFAZolin 2 GM/DEXTROSE 100 ML IV ONE (21:11)
--- NOTE | 2018-10-26 21:12 | PDHPUP ---
History & Physical Update H&P update statement: This history and physical update is based on an assessment of the patient which was completed after admission or registration (within 24 hours), but prior to the surgery/procedure. H&P update: H&P reviewed & patient examined, no change in patient's condition since H&P completed
[2018-10-26] MEDS ORDERED: LR 1,000 ML IV ONE (21:14)
[2018-10-26] MEDS ORDERED: MIDAZOLAM 2 MG/2 ML VIAL ONE (22:09)
[2018-10-26] MEDS ORDERED: MIDAZOLAM 2 MG/2 ML VIAL IVP ONE (22:12)
--- NOTE | 2018-10-26 22:14 | PDANEPAE ---
ANE History of Present Illness L hand FB ANE Past Medical History - Pulmonary History Hx Oxygen in Use at Home: No Hx Sleep Apnea: Yes - Endocrine History Hx Diabetes: Yes - Cancer History Hx Cancer: Yes - GI History GERD: mild Hx Gastrointestinal Disorders: Yes - Chronic Pain History Chronic Pain: No ANE Review of Systems Review of systems is: negative Review of Systems: - Exercise capacity Exercise capacity: >=4 METS ANE Patient History - Allergies Allergies/Adverse Reactions: No Known Allergies Allergy (Verified 10/26/18 20:52) - Home Medications Home medications: home medication list seen and reviewed Home Medications: Hydroxychloroquine Sulfate [Plaquenil 200 mg (*)] 200 mg PO DAILY 05/11/11 [ Last Taken 11/05/17] Aspirin [Aspirin 81mg (*)] 81 mg PO HS 11/05/17 [Last Taken 11/04/17] Atorvastatin Calcium [Lipitor 20 mg (*)] 20 mg PO HS 11/05/17 [Last Taken ] Insulin Glargine,Hum.rec.anlog [Lantus Solostar] 10 unit SC HS 11/05/17 [Last Taken 11/04/17] Cholecalciferol (Vitamin D3) [Vitamin D3] 2,000 unit PO HS 11/06/17 [Last Taken 11/04/17] Insulin Aspart [Novolog Flexpen] 2 - 4 unit SC BIDMEAL 11/06/17 [Last Taken ] Sitagliptin Phos/Metformin HCl [Janumet 50-500 mg Tablet] 1 each PO BIDMEAL [Last Taken 11/05/17 08:00] Metoprolol Succinate Xr [Toprol Xl 25 mg (*)] 12.5 mg PO HS 05/13/18 [Last Taken Unknown] Reclast 1 each IV .Q1YEAR 05/13/18 [Last Taken 2 Months Ago ~03/13/18] amLODIPine BESYLATE [Norvasc 2.5 mg (*)] 2.5 mg PO DAILY 05/13/18 [Last Taken Unknown] - NPO status NPO Status: no food or drink >8 hours NPO Since - Liquids (Date): 10/26/18 NPO Since - Liquids (Time): 12:30 NPO Since - Solids (Date): 10/26/18 NPO Since - Solids (Time): 12:30 - Anes Hx Anes Hx: no prior problems - Smoking Hx Smoking Status: Never smoked - Family Anes Hx Family Anes Hx: none ANE Labs/Vital Signs - Vital Signs Vital Signs: reviewed preoperatively; see RN documention for details Blood Pressure: 126/76 Heart Rate: 57 Respiratory Rate: 16 O2 Sat (%): 95 ANE Physical Exam - Airway Neck exam: FROM Mallampati Score: Class 1 Mouth exam: normal dental/mouth exam - Pulmonary Pulmonary: no respiratory distress - Cardiovascular Cardiovascular: regular rate and rhythym - ASA Status ASA Status: II
[2018-10-26] MEDS ORDERED: LIDOCAINE 2% 100 MG/5 ML SYR ONE (22:19)
[2018-10-26] MEDS ORDERED: PROPOFOL/EMULSION 500 MG/50 ML BOTTLE IV ONE (22:19)
[2018-10-26] MEDS ORDERED: CEFAZOLIN 2 GM/DEXTROSE/100 ML BAG IV ONE (22:35)
[2018-10-26] MEDS ORDERED: DEXAMETHASONE 4 MG/ML VIAL IVP PRN (22:43)
[2018-10-26] MEDS ORDERED: ACETAMINOPHEN 500 MG TAB PO PRN (22:43)
[2018-10-26] MEDS ORDERED: ONDANSETRON 4 MG/2 ML VIAL IVP PRN (22:43)
[2018-10-26] MEDS ORDERED: oxyCODONE IR 5 MG TAB PO PRN (22:43)
[2018-10-26] MEDS ORDERED: HYDROmorphONE/DILAUDID 2 MG/ML INJ IVP PRN (22:43)
[2018-10-26] MEDS ORDERED: fentaNYL 100 MCG/2 ML INJ IVP PRN (22:43)
[2018-10-26] MEDS ORDERED: NALOXONE HCL 0.4 MG/ML INJ IVP PRN (22:43)
[2018-10-26] MEDS ORDERED: MEPERIDINE 25 MG/0.5 ML AMP IVP PRN (22:43)
[2018-10-26] MEDS ORDERED: HYDROCODONE/APAP 5/325 TAB PO PRN (22:43)
--- NOTE | 2018-10-26 22:56 | POSTANESTH ---
Post Anesthetic Evaluation Cardiovascular Status: Normal, Stable, Similar to Pre-Op Cond Respiratory Status: Similar to Pre-op Cond. Level of Consciousness/Mental Status: Can Participate in Eval, Mildly Sleepy, Arousable Pain Control: Adequate, Prn Tx Ordered Nausea/Vomiting Control: Adequate, Prn Tx Ordered Complications Possibly Related to Anesthesia: None Noted
[2018-10-26 23:19] VITALS: BP 126/78
--- NOTE | 2018-10-27 07:57 | GOP ---
DATE OF OPERATION: 10/26/2018 SURGEON: Cuong Vuong MD ANESTHESIA: Local and MAC. PREOPERATIVE DIAGNOSIS: Infected foreign body in the left palm. POSTOPERATIVE DIAGNOSIS: Infected foreign body in the left palm. PROCEDURE PERFORMED: Removal of deep infected foreign body in the left palm. FINDINGS: ESTIMATED BLOOD LOSS: Less than 5 cc. INDICATIONS: The patient was seen by me in the clinic today after she was seen in urgent care. Yest erday she was walking down the steps in her house and had a splinter go into her palm. Her pu lled out a small piece of splinter. However, the following day, she had increased redness and swelli ng and pain over the splinter site. She went to urgent care as she works at [employer] a nd had an ultrasound done. The ultrasound showed a nearly 4 cm foreign body in her palm. I saw the patient afterwards. She had on exam redness and swelling over the puncture site. She states that th is was worsening during the day with some red streaking. She is a diabetic. This was concerning for a worsening infection. I felt that this should be urgently removed. Discussed the risks and benefi ts of surgery. Risks including pain, bleeding, infection, damage to surrounding structures, stiffnes s, weakness, wound healing complications, need for further surgeries were discussed. She wished to p иван. DESCRIPTION OF PROCEDURE: The patient was seen in the preoperative holding area. She was given the opportunity to ask more questions. All her questions were answered. Consent was signed. Surgical s ite was marked. She was transferred to the operative suite. Care was taken to pad all bony prominen brett on the gurney. Time-out was called including surgical and anesthesia teams confirming the surgic al site and procedure to be performed. The left upper extremity was prepped and draped in the usual sterile fashion. I injected local 0.5% Marcaine with epinephrine into the palm. Sedation was given by the anesthesia team. Afterward, I made a small incision over the puncture site. I carefully dissected down through the fa scia into the palmar fat, identified a long wooden foreign body, removed this in its entirety. This was about 4 cm long. It was as the description of the ultrasound. I took cultures. After the cultu res were taken, 2 g of Ancef were given. I then irrigated copiously with sterile saline. After irri gation, the tissue was loosely closed with 4-0 nylon. Sterile dressing was applied. She tolerated t he procedure well and was taken to PACU in stable condition. POSTOPERATIVE CONDITION: Stable. POSTOPERATIVE PLAN: She will follow up with me in about a week. She will start Keflex tomorrow and soaks. /[id number]/MODL
== END 2018-10-26 23:39 | disposition home or self-care (01) ==
LOC: FSGY 20:25
PROVIDERS: ATTEND Orthopaedic Surgery Hand Surgery
PROC: 0JCK0ZZ Extirpation of Matter from Left Hand Subcutaneous Tissue and Fascia, Open Approach (ICD-10-PCS; principal; 2018-10-26 22:30)
DX: L08.9 Local infection of the skin and subcutaneous tissue, unspecified (principal); S60.552A Superficial foreign body of left hand, initial encounter; W45.8XXA Other foreign body or object entering through skin, initial encounter; Y93.89 Activity, other specified; E11.9 Type 2 diabetes mellitus without complications; Z79.4 Long term (current) use of insulin; M81.0 Age-related osteoporosis without current pathological fracture; M06.9 Rheumatoid arthritis, unspecified
CPT/HCPCS: J0690; J2001; J2250; J2704

== ENCOUNTER → 2018-10-26 | Outpatient (CLI) | payer OTHER | LOC: BMCIMAGING 15:59 | PROVIDERS: ATTEND Family Medicine | DX: S60.453A Superficial foreign body of left middle finger, initial encounter (principal) ==

== ENCOUNTER → 2019-01-06 | Outpatient (CLI) | payer OTHER | LOC: FIMAGING 09:54 ==

== ENCOUNTER → 2019-02-13 | Outpatient (CLI) | payer OTHER | LOC: BMCIMAGING 16:45 | PROVIDERS: ATTEND Internal Medicine | DX: M79.641 Pain in right hand (principal); W19.XXXA Unspecified fall, initial encounter ==

== ENCOUNTER → 2019-04-22 | Outpatient (CLI) | payer OTHER | LOC: FIMAGING 14:43 ==